=== PATIENT | female | born 1990 ===

== ENCOUNTER 2020-06-24 23:33 | Emergency (ER) | payer SELFPAY ==
[2020-06-24 23:41] VITALS: BP 126/74
[2020-06-25] MEDS ORDERED: ACETAMINOPHEN 325 MG TABLET ONE (00:45)
--- NOTE | 2020-06-25 00:47 | NUR ---
PT REFUSED TYLENOL AT THIS TIME.
--- NOTE | 2020-06-25 00:54 | NUR ---
PT REFUSING MONITORS AT THIS TIME, EXPLAINED TO PT THE NEED FOR HEART MONITOR BECAUSE OF HER ELEVATED HR. PT STILL REFUSING AFTER EDUCATION.
[2020-06-25] MEDS ORDERED: ACETAMINOPHEN 325 MG TABLET PO ONE (01:00)
== END 2020-06-25 01:29 | disposition home or self-care (01) ==
LOC: ED 06-25 01:00
DX: S00.11XA Contusion of right eyelid and periocular area, initial encounter (principal); S00.81XA Abrasion of other part of head, initial encounter; F10.129 Alcohol abuse with intoxication, unspecified; Y90.9 Presence of alcohol in blood, level not specified; Y04.0XXA Assault by unarmed brawl or fight, initial encounter; Y93.89 Activity, other specified; Y92.89 Other specified places as the place of occurrence of the external cause; Y99.8 Other external cause status
CPT/HCPCS: 36415; 80307; 84703; 99283